=== PATIENT | female | born 1995 | race Caucasian/White ===

== ENCOUNTER 2017-01-23 10:20 | Emergency (ER) | payer OTHER ==
[2017-01-23 11:24] VITALS: BP 114/69
--- NOTE | 2017-01-23 12:19 | UC ---
Throat Pain/Nasal Bill HPI - HPI Summary HPI Summary: 21 y/o female presents to the urgent care c/o sore throat and nasal congestion with yellowish nasal discharge for the the past 4 days. Pt states last night she had a headache and dizziness, specially with change in position or standing associate with B/L ear pain. Pt states pain is 7/10 with swallowing. She has taken ibuprofen 600mg PO last night to alleviate symptoms. This morning ear pain has increased. she had subjective fever at home. Pt denies N/V/D, cough , chest pain, abdominal pain. She has decrease appetite due to sore throat. Pt is PCN allergic. - History of Current Complaint Chief Complaint: UCRespiratory Stated Complaint: CAMPOS,THROAT,DIZZINESS Time Seen by Provider: 01/23/17 12:16 Hx Obtained From: Patient Hx Last Menstrual Period: 1yr+ ?: No Onset/Duration: Gradual Onset, Lasting Days - 4 days, Still Present Severity: Severe Pain Intensity: 9 Pain Scale Used: 0-10 Numeric Cough: None Associated Signs & Symptoms: Positive: Dysphagia, Nasal Discharge, Fever, Other - B/L ear pain - Epiglottits Risk Factors Epiglottis Risk Factors: Negative - Allergies/Home Medications Allergies/Adverse Reactions: Allergies Allergy/AdvReac Type Severity Reaction Status Date / Time Amoxicillin AdvReac Nausea And Verified 01/23/17 11:24 Vomiting honey nut cheerios Allergy Hives Uncoded 01/23/17 11:25 PMH/Surg Hx/FS Hx/Imm Hx Previously Healthy: Yes - Pt denies PMHX - Surgical History Surgical History: None - Family History Known Family History: Negative: Diabetes Family History: Hypothyrodism - Social History Occupation: Employed Full-time Lives: With Family Alcohol Use: None Substance Use Type: None Smoking Status (MU): Never Smoked Tobacco - Immunization History Most Recent Influenza Vaccination: Not the 2016/2016 Season Vaccination Up to Date: Yes Review of Systems Constitutional: Fever - subjective at home, Other - dizziness Skin: Negative Eyes: Negative ENT: Sore Throat, Ear Ache - B/L, Nasal Discharge - yellowish nasal discharge Respiratory: Negative Cardiovascular: Negative Gastrointestinal: Negative Genitourinary: Negative Motor: Negative Neurovascular: Negative, Decreased Sensation Musculoskeletal: Negative Neurological: Headache Psychological: Negative Is Patient Immunocompromised?: No All Other Systems Reviewed And Are Negative: Yes Physical Exam Triage Information Reviewed: Yes Vital Signs: Initial Vital Signs Temp 99 F 01/23/17 11:17 Pulse 108 01/23/17 11:17 Resp 22 01/23/17 11:17 BP 114/69 01/23/17 11:17 Pulse Ox 100 01/23/17 11:17 - Additional Comments Vital signs: reviewed General: awake and alert,well developed, well nourished female w/o any apparent distress, not toxic appearing. Skin: [place], warm and dry, no evidence of atopic dermatitis, psoriasis, seborrhea. HEENT: -Head: atraumatic, non tender; no scalp dermatitis. -Eyes: sclera and conjunctiva clear, PERRLA, EOMI -Ears: no pre- or postauricular lymphadenopathy or erythema; RT external ear canal clear, Rt injected with mild yellowish discharge. LF external ear canal impacted with cerumen unable to visualized TM. No fluid level, vesicles, or bullae. No perforation. -Nose/Face: erythematous and edematous nasal mucosa with clear rhinorrhea, no frontal or maxillary sinus tender to palpation. -Mouth/Throat: Mucous membrane moist, posterior pharynx with erythema and no exudate. B/L tonsilar enlargement with no exudate. Neck: supple, FROM, positive anterior cervical lymphadenopathy, no meningismus. Chest: Clear to auscultation, normal breath sounds Abd: soft, Bowel sounds active, Nontender. Back: no spinal or CVAT Neuro: A&O x4, GCS 15, no focal neuro deficits, normal behavior for age. Throat Pain/Nasal Course/Dx - Course Course Of Treatment: 21 y/o female presents to the urgent care c/o sore throat and nasal congestion with yellowish nasal discharge for the the past 4 days. Pt states last night she had a headache and dizziness, specially with change in position or standing associate with B/L ear pain. Pt states pain is 7/10 with swallowing. She has taken ibuprofen 600mg PO last night to alleviate symptoms. This morning ear pain has increased. she had subjective fever at home. Pt denies N/V/D, cough , chest pain, abdominal pain. She has decrease appetite due to sore throat. Pt is PCN allergic. Hx obtained.Pt with RT otitis media, pharyngitis and LF external ear canal with cerumen impaction on examination.Rapid strep ordered r/o strep, result: negative. Pt Rx Z-ana m, ibuprofen PO and Carbamide peroxide otic drops. Pt advised to rest, eat well and avoid strenuous exercise. If symptoms do not improve or worsen advised to return to the urgent care or f/u with her PCP for further evaluation and treatment. Pt understood and agreed plan of care - Differential Dx/Diagnosis Differential Diagnosis/HQI/PQRI: Influenza, Laryngitis, Mononucleosis, Otitis Media, Peritonsillar Abscess, Pharyngitis, Tonsillitis, URI Provider Diagnoses: 1- Acute Otitis Media. 2- Pharyngitis. 3- Left external ear canal with Cerumen Impaction Discharge - Discharge Plan Condition: Stable Disposition: HOME Prescriptions: Azithromyxin ANA M (NF) [Z-Ana M (Zithromax) 250 mg tabs #6] 2 tab PO .TODAY, THEN 1 DAILY #6 tab Carbamide Peroxide 6.5% OTIC* [DEBROX 6.5% Otic*] 5 drop LEFT EAR BID #1 bottle Famotidine TAB* [Pepcid 20 MG TAB*] 20 mg PO DAILY #30 tab Ibuprofen TAB* [Motrin TAB* 800 MG] 800 mg PO Q6H #20 tab Patient Education Materials: Pharyngitis (ED), Cerumen Impaction (ED), Otitis Media (ED) Forms: *Work Release Referrals: [facility] [place] [facility] [Outside] - 3 Days Non Staff,Doctor [Primary Care Provider] - Additional Instructions: 1- Please take the full course of the antibiotic to avoid resistance. Apply otic drops on left ear to soften cerumen 2-Please take ibuprofen PO q6-8hrs prn as instructed after meals to alleviate pain and swelling. Increase fluid intake, eat well, rest and avoid strenuous exercise. Take Famotidine to protect you stomach. 3-If symptoms do not improve or worsen please return to the urgent care or f/u with your PCP for further evaluation and treatment.
[2017-01-23] MEDS ORDERED: Ibuprofen TAB* 400 MG PO ONE (12:28)
[2017-01-23] MEDS ORDERED: Famotidine TAB* 20 MG PO ONE (12:28)
== END 2017-01-23 12:49 | disposition home or self-care (01) ==
LOC: UCCORT 10:20
DX: H66.93 Otitis media, unspecified, bilateral (principal); H61.22 Impacted cerumen, left ear; J02.9 Acute pharyngitis, unspecified; Z88.1 Allergy status to other antibiotic agents
CPT/HCPCS: 87651; 99212; A9270-GY; G0463

== ENCOUNTER 2017-04-08 15:07 | Emergency (ER) | payer OTHER | END 2017-04-08 17:20 | disposition left against medical advice (07) | LOC: UCCORT 15:07 | DX: Z53.21 Procedure and treatment not carried out due to patient leaving prior to being seen by health care provider (principal) ==

== ENCOUNTER 2017-05-28 09:03 | Emergency (ER) | payer SELFPAY ==
[2017-05-28 10:14] VITALS: BP 107/68
--- NOTE | 2017-05-28 10:22 | UC ---
Throat Pain/Nasal Bill HPI - HPI Summary HPI Summary: patient has had sore throat, bodyaches and cough for the psat 3 days. - History of Current Complaint Chief Complaint: UCGeneralIllness Stated Complaint: SORE THROAT, HEADACHE, FEVER Time Seen by Provider: 05/28/17 10:16 Hx Obtained From: Patient Hx Last Menstrual Period: 1yr+ ?: No Onset/Duration: Sudden Onset, Lasting Days Severity: Moderate Pain Intensity: 7 Cough: Nonproductive Associated Signs & Symptoms: Positive: Dysphagia, Wheezing, Nasal Discharge - Allergies/Home Medications Allergies/Adverse Reactions: Allergies Allergy/AdvReac Type Severity Reaction Status Date / Time amoxicillin AdvReac Nausea And Verified 05/28/17 10:13 Vomiting PMH/Surg Hx/FS Hx/Imm Hx Previously Healthy: Yes - Surgical History Surgical History: None - Family History Known Family History: Positive: Unknown Negative: Diabetes Family History: Hypothyrodism - Social History Alcohol Use: Occasionally Substance Use Type: None Smoking Status (MU): Never Smoked Tobacco - Immunization History Most Recent Influenza Vaccination: Not the Season Vaccination Up to Date: Yes Review of Systems Constitutional: Chills, Fatigue Skin: Negative Eyes: Negative ENT: Sore Throat, Ear Ache Respiratory: Cough Cardiovascular: Negative Gastrointestinal: Negative Motor: Negative Neurovascular: Negative Musculoskeletal: Myalgia Neurological: Headache Is Patient Immunocompromised?: No All Other Systems Reviewed And Are Negative: Yes Physical Exam Triage Information Reviewed: Yes Appearance: Well-Nourished, Ill-Appearing, Pain Distress Vital Signs: Initial Vital Signs Temp 99.0 F 05/28/17 10:10 Pulse 125 05/28/17 10:10 Resp 16 05/28/17 10:10 BP 107/68 05/28/17 10:10 Pulse Ox 100 05/28/17 10:10 Vital Signs Reviewed: Yes Eye Exam: Normal ENT: Positive: Pharyngeal erythema, TM bulging, TM red, Tonsillar swelling, Tonsillar exudate Dental Exam: Normal Neck exam: Normal Neck: Positive: Supple, Nontender, No Lymphadenopathy Respiratory Exam: Normal Respiratory: Positive: Chest non-tender, No respiratory distress, No accessory muscle use, Wheezing, Inspiration Cardiovascular Exam: Normal Cardiovascular: Positive: RRR, No Murmur, Pulses Normal Abdominal Exam: Normal Abdomen Description: Positive: Nontender, No Organomegaly, Soft Bowel Sounds: Positive: Present Musculoskeletal Exam: Normal Musculoskeletal: Positive: Strength Intact, ROM Intact, No Edema Neurological Exam: Normal Neurological: Positive: Alert, Muscle Tone Normal Psychological Exam: Normal Skin Exam: Normal Throat Pain/Nasal Course/Dx - Course Course Of Treatment: hx obtained, exam performed ,meds reviewed, rapid strep obtained and is negative, treated for wheezing, suspected flu or viral illness - Differential Dx/Diagnosis Differential Diagnosis/HQI/PQRI: Otitis Media, Pharyngitis, Sinusitis, URI Provider Diagnoses: pharyngitis. tachycardia. myalgia. wheezing Discharge - Discharge Plan Condition: Stable Disposition: HOME Prescriptions: predniSONE TAB* [Deltasone TAB*] 40 mg PO DAILY #14 tab Patient Education Materials: Pharyngitis (ED) Referrals: Non Staff,Doctor [Primary Care Provider] - Additional Instructions: 1. increase fluid intake 2. get plenty of rest 3. Take the medication as prescribed 4. FOllow up as needed.
== END 2017-05-28 10:43 | disposition home or self-care (01) ==
LOC: UCCORT 09:03
DX: J02.9 Acute pharyngitis, unspecified (principal); R00.0 Tachycardia, unspecified; M79.1 Myalgia; R06.2 Wheezing; Z88.0 Allergy status to penicillin
CPT/HCPCS: 87651; 99212; G0463

== ENCOUNTER 2018-02-16 15:53 | Emergency (ER) | payer SELFPAY ==
[2018-02-16 16:11] VITALS: BP 108/70
--- NOTE | 2018-02-16 16:33 | UC ---
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 + gerd sx. took a lot of tums. Ulisses says she eats terribe diet w/ a lot of junk food and sugar. no fevers. + diarrhea x 3 wks. states she has never been constipated. had regular BMs daily prior to this. admits to BRBPR this year. last was 3 wks ago prior to this onset. cousin w/ Crohns disease. she never went to the Dr earlier in this year for her sx bc she did not have isnurance. she ate bland diet adn sx resolved. thought she had an ulcer. -denies NSAIDs. takes excedrin 1x q2 wks -denies dysruria. has coffee daily, 1 energy drink per week. -no fever. - History of Current Complaint Chief Complaint: UCGeneralIllness Stated Complaint: CRAMPING X3 WEEKS Time Seen by Provider: 02/16/18 16:12 Hx Last Menstrual Period: has mirena Pain Intensity: 4 Allergies/Adverse Reactions: Allergies Allergy/AdvReac Type Severity Reaction Status Date / Time amoxicillin AdvReac Nausea And Verified 05/28/17 10:13 Vomiting PMH/Surg Hx/FS Hx/Imm Hx Previously Healthy: Yes - Surgical History Surgical History: None - Family History Known Family History: Positive: Other - cousin w/ crohns and ulcers Negative: Diabetes Family History: Hypothyrodism - Social History Alcohol Use: Weekly Substance Use Type: None Smoking Status (MU): Never Smoked Tobacco - Immunization History Most Recent Influenza Vaccination: Not the 2016/2016 Season Vaccination Up to Date: Yes Review of Systems All Other Systems Reviewed And Are Negative: Yes Constitutional: Positive: Negative Skin: Positive: Negative Eyes: Positive: Negative ENT: Positive: Negative Respiratory: Positive: Negative Cardiovascular: Positive: Negative Gastrointestinal: Positive: Abdominal Pain, Diarrhea, Nausea Genitourinary: Positive: Negative Motor: Positive: Negative Neurovascular: Positive: Negative Musculoskeletal: Positive: Negative Neurological: Positive: Negative Psychological: Positive: Negative Is Patient Immunocompromised?: No Physical Exam Triage Information Reviewed: Yes Appearance: Well-Appearing, No Pain Distress, Well-Nourished Vital Signs: Initial Vital Signs Temp 98.4 F 02/16/18 16:07 Pulse 88 02/16/18 16:07 Resp 14 02/16/18 16:07 BP 108/70 02/16/18 16:07 Pulse Ox 100 02/16/18 16:07 Vital Signs Reviewed: Yes Eye Exam: Normal ENT Exam: Normal ENT: Positive: Pharynx normal, TMs normal - + cerumen Neck exam: Normal Neck: Positive: Supple, Nontender, No Lymphadenopathy Respiratory Exam: Normal Respiratory: Positive: Lungs clear, Normal breath sounds, No respiratory distress, No accessory muscle use. Negative: Crackles, Rhonchi, Stridor, Wheezing Cardiovascular Exam: Normal Cardiovascular: Positive: RRR, No Murmur, Pulses Normal Abdomen Description: Positive: No Organomegaly, Soft, Other: - tender generally throughout entire abdomen, most pronounced at left mid abdomen. no r/g. Negative: CVA Tenderness (R), CVA Tenderness (L), Distended, Guarding, Pulsatile Mass, Splenomegaly Bowel Sounds: Positive: Present Musculoskeletal Exam: Normal Neurological Exam: Normal Psychological Exam: Normal Skin Exam: Normal Abd Pain Female Course/Dx - Course Course Of Treatment: UA + @ LE. Urine HCG neg. CT A/P shows no abnormalities. there may be a gall stone that can be further evaluated with the GI. -pt was stable at the time of dc. pain was minimal. - Differential Dx/Diagnosis Differential Diagnosis: Bowel Obstruction, Constipation, Diverticulitis, Gall Bladder Disease, Irritable Bowel Syndrome, Ovarian Cyst, Peptic Ulcer Disease, Renal Colic, Urinary Tract Infection Provider Diagnosis: Abdominal pain, Diarrhea Discharge - Sign-Out/Discharge Documenting (check all that apply): Patient Departure All imaging exams completed and their final reports reviewed: No Studies - Discharge Plan Condition: Stable Disposition: HOME Patient Education Materials: Abdominal Pain (ED) Referrals: No Primary Care Phys,NOPCP [Primary Care Provider] - Randolph Jones MD [Medical Doctor] - 1 Week Additional Instructions: We have printed a copy of your CT report that doesn't show any significant findings. The gallbladder may have a stone in it. We did talk about the fact that you did not have contrast done with the CT that can somewhat limit the findings. You should follow up with the rn telephone triage to evaluate further. The CT rules out some major issues, but does not fully evaluate and more testing is certainly needed. - Billing Disposition and Condition Condition: STABLE Disposition: Home
== END 2018-02-16 18:20 | disposition home or self-care (01) ==
LOC: UCCORT 15:53
DX: R10.84 Generalized abdominal pain (principal); R19.7 Diarrhea, unspecified; Z88.0 Allergy status to penicillin
CPT/HCPCS: 74176; 81003; 84702; 87086; 99211; G0463

== ENCOUNTER 2018-03-19 16:01 | Emergency (ER) | payer BC ==
[2018-03-19 17:09] VITALS: BP 118/73
--- NOTE | 2018-03-19 17:30 | UC ---
Complaint Female HPI - HPI Summary HPI Summary: 22 y/o female presents to the urgent care c/o urinary and frequency on urination since 03/14/2018. Pt w/ Hx of recurrent UTI. Pt states pain w/ urination is 7/10. She took Azo the first 2 days. She has been drinking water w /o any improvement. Today she developed lower back pain. Pt denies fever. flank pain, vaginal discharge, Hx of STD's, SOB, CAMPOS, chest pain, abdominal pain, N/V/ D. - History Of Current Complaint Chief Complaint: UCGU Stated Complaint: URINARY Time Seen by Provider: 03/19/18 17:20 Hx Obtained From: Patient Hx Last Menstrual Period: has mirena ?: No - Pt declines test Onset/Duration: Gradual Onset, Lasting Days - 5 days, Still Present, Worse Since - today Timing: Intermittent Severity Initially: Mild Severity Currently: Moderate Pain Intensity: 7 Pain Scale Used: 0-10 Numeric Character: Burning Aggravating Factor(s): Urination Alleviating Factor(s): Position Associated Signs And Symptoms: Positive: Back Pain - RT lower side back pain. Negative: Fever, Vaginal Bleeding/Discharge, Nausea, Vomiting(# Of Episodes =), Genital Swelling Related Hx: Similar Episode/Dx as: - UTI - Risk Factors Ectopic Risk Factor: Negative Ovarian Torsion Risk Factor: Negative - Allergies/Home Medications Allergies/Adverse Reactions: Allergies Allergy/AdvReac Type Severity Reaction Status Date / Time amoxicillin AdvReac Nausea And Verified 03/19/18 17:09 Vomiting Home Medications: Home Medications Omeprazole CAP (NF) [Prilosec CAP* 20 MG] 40 mg PO DAILY 03/19/18 [History Confirmed 03/19/18] Sucralfate TAB* [Carafate*] 1 gm PO QID 03/19/18 [History Confirmed 03/19/18] PMH/Surg Hx/FS Hx/Imm Hx Previously Healthy: Yes GI/ History: Other - gastritis Other GI/ History: Recurrent UTI - Surgical History Surgical History: None - Family History Known Family History: Negative: Diabetes Family History: Hypothyrodism, cousin w/ crohns and ulcers - Social History Occupation: Employed Full-time Lives: With Family Alcohol Use: Weekly Substance Use Type: None Smoking Status (MU): Never Smoked Tobacco - Immunization History Most Recent Influenza Vaccination: Not the Season Vaccination Up to Date: Yes Review of Systems All Other Systems Reviewed And Are Negative: Yes Constitutional: Positive: Negative Skin: Positive: Negative Eyes: Positive: Negative ENT: Positive: Negative Respiratory: Positive: Negative Cardiovascular: Positive: Negative Gastrointestinal: Positive: Negative Genitourinary: Positive: Dysuria, Frequency, Urgency Motor: Positive: Negative Neurovascular: Positive: Negative Musculoskeletal: Positive: Other: - RT side lower back pain Neurological: Positive: Negative Psychological: Positive: Negative Is Patient Immunocompromised?: No Physical Exam - Summary Physical Exam Summary: VITAL SIGNS: Reviewed. GENERAL: Patient is a well developed and nourished female who is sitting comfortable in the examining table. Patient is not in any acute respiratory distress. HEAD AND FACE: No signs of trauma. No ecchymosis, hematomas or skull depressions. No sinus tenderness. EYES: PERRLA, EOMI x 2, No injected conjunctiva, clear watery eyes, no nystagmus. No photophobia. EARS: Hearing grossly intact. Ear canals and tympanic membranes are within normal limits. MOUTH: pharynx with no erythema, no exudates,no palatal petechiae. no B/L tonsillar enlargement Uvula in midline. NECK: Supple, trachea is midline, no lymphadenopathy, no JVD, no carotid bruit, no c-spine tenderness, neck with full ROM. CHEST: Symmetric, no tenderness at palpation LUNGS: Clear to auscultation bilaterally. No wheezing or crackles. CVS: Regular rate and rhythm, S1 and S2 present, no murmurs or gallops appreciated. ABDOMEN: Soft, non-tender. No signs of distention. No rebound no guarding, and no masses palpated. Bowel sounds are normal. BACK:no scoliosis or lesions, non tender to palpation, No B/L CVA tenderness. mild RT side lower back pain EXTREMITIES: FROM in all major joints, no edema, no cyanosis or clubbing. NEURO: Alert and oriented x 3. No acute neurological deficits. Speech is normal and follows commands. SKIN: Dry and warm Triage Information Reviewed: Yes Vital Signs: Initial Vital Signs Temp 98.2 F 03/19/18 17:04 Pulse 98 03/19/18 17:04 Resp 16 03/19/18 17:04 BP 118/73 03/19/18 17:04 Pulse Ox 100 03/19/18 17:04 Complaint Female Dx - Course Course Of Treatment: 22 y/o female presents to the urgent care c/o urinary and frequency on urination since 03/14/2018. Pt w/ Hx of recurrent UTI. Pt states pain w/ urination is 7/10. She took Azo the first 2 days. She has been drinking water w/o any improvement. Today she developed lower back pain. Pt denies fever. flank pain, vaginal discharge, Hx of STD's, SOB, CAMPOS, chest pain, abdominal pain, N/V/D. Hx obtained. PE: WNL. UA ordered. UA results: Blood 1+ , Leukoesterase 2+. Pt Rx Ciprofloxacin PO x 7 days. Pyridium 100mg PO TID x 2 days. Advised to increase fluid intake. Urine sent for culture if any abnormality Pt will be notified for further treatment. Pt strongly advised if fever develops or flank pain despite taking antibiotic to inmediately go to the ER for further managment. Otherwise f/u w/ her PCP if not improvment. Pt understood and agreed w/ D/C instructions. Pt Left the clinic ambulating. - Differential Dx/Diagnosis Differential Diagnosis/HQI/PQRI: Cervicitis, Pelvic Inflammatory Disease, Renal Colic, Ureteral Stone, Urinary Tract Infection, Other - pyelonephritis Provider Diagnosis: UTI (urinary tract infection), Dysuria Discharge - Sign-Out/Discharge Documenting (check all that apply): Patient Departure - D/c home All imaging exams completed and their final reports reviewed: No Studies - Discharge Plan Condition: Stable Disposition: HOME Prescriptions: Ciprofloxacin TAB* [Cipro 500 MG TAB*] 500 mg PO BID #14 tab Phenazopyridine TAB* [Pyridium 100 mg TAB*] 100 mg PO TID #6 tab Patient Education Materials: Urinary Tract Infection in Women (ED) Forms: *Work Release Referrals: [facility] [place] [facility] REFERR[facility] [Outside] - 3 Days Additional Instructions: 1- Please take Ciprofloxacin PO x 7 days. Pyridium 100 mg PO TID x 2 days to alleviate urinary symptoms. Increase increase fluid intake. drink cranberry juice. 2-Urine sent for culture if any abnormality, you will be notified for further treatment. 3- If symptoms worsen and you develop fever despite taking antibiotic please go immediately to the ER for further evaluation and treatment. - Billing Disposition and Condition Condition: STABLE Disposition: Home - Attestation Statements Provider Attestation: I was available for consult. This patient was seen by the HITESH. The patient was not presented to, seen by, or examined by me. -Gera
== END 2018-03-19 17:44 | disposition home or self-care (01) ==
LOC: UCCORT 16:01
DX: N39.0 Urinary tract infection, site not specified (principal); R30.0 Dysuria; Z87.440 Personal history of urinary (tract) infections; Z88.0 Allergy status to penicillin
CPT/HCPCS: 81003; 84702; 87086; 87088; 99212; G0463

== ENCOUNTER 2018-10-03 21:06 | Emergency (ER) | payer BC ==
[2018-10-03 21:24] VITALS: BP 111/72
[2018-10-03] MEDS ORDERED: cefTRIAXone VIAL(*) 1,000 MG VIAL IM ONE ×2 (21:36→21:40)
--- NOTE | 2018-10-03 21:36 | UC ---
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 Pt states UTI symptoms (urgency and burning with urination) cleared. Then woke this am with lower back pain and pelvis hurting. Pt felt she had a fever today. " -has had pyelnephritis before. feels similar -left flank pain is smod-severe. -felt feverish all day + dysuria started today again. -denies , has IUD. lives w/ BF who is reliabel and can take her to ER overnight if sx worsen - History Of Current Complaint Chief Complaint: UCGU Stated Complaint: URINARY COMPLAINT Time Seen by Provider: 10/03/18 21:25 Hx Last Menstrual Period: IUD Pain Intensity: 7 - Allergies/Home Medications Allergies/Adverse Reactions: Allergies Allergy/AdvReac Type Severity Reaction Status Date / Time amoxicillin AdvReac Nausea And Verified 10/03/18 21:24 Vomiting PMH/Surg Hx/FS Hx/Imm Hx Previously Healthy: Yes - Surgical History Surgical History: None - Family History Known Family History: Positive: Unknown, Other - cousin w/ crohns and ulcers Negative: Diabetes Family History: Hypothyrodism, cousin w/ crohns and ulcers - Social History Alcohol Use: Weekly Substance Use Type: None Smoking Status (MU): Never Smoked Tobacco - Immunization History Most Recent Influenza Vaccination: Not the 2015/2016 Season Vaccination Up to Date: Yes Review of Systems All Other Systems Reviewed And Are Negative: Yes Constitutional: Positive: Fever, Chills, Fatigue Skin: Negative: Rash Eyes: Positive: Negative ENT: Positive: Negative Respiratory: Positive: Negative. Negative: Cough Cardiovascular: Positive: Negative. Negative: Chest Pain Gastrointestinal: Positive: Abdominal Pain Genitourinary: Positive: Dysuria, Urgency Motor: Positive: Negative Neurovascular: Positive: Negative Musculoskeletal: Positive: Myalgia Neurological: Positive: Negative Psychological: Positive: Negative Is Patient Immunocompromised?: No Physical Exam Triage Information Reviewed: Yes Appearance: Well-Nourished, Ill-Appearing - mild. very pleaant. 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 Vital Signs: Initial Vital Signs Temp 98.8 F 10/03/18 21:19 Pulse 86 10/03/18 21:19 Resp 16 10/03/18 21:19 BP 111/72 10/03/18 21:19 Pulse Ox 99 07/24/19 21:19 Eye Exam: Normal ENT Exam: Normal ENT: Positive: Pharynx normal Neck exam: Normal Neck: Positive: Supple, Nontender, No Lymphadenopathy Respiratory: Positive: Lungs clear, Normal breath sounds, No respiratory distress, No accessory muscle use Cardiovascular Exam: Normal Cardiovascular: Positive: RRR Abdomen Description: Positive: Soft, CVA Tenderness (L) - positive, Other: - tender at suprapubic area. midl at LLQ. Negative: CVA Tenderness (R), Distended , Guarding, Hepatomegaly, Peritoneal Signs, Pulsatile Mass Musculoskeletal Exam: Normal Neurological Exam: Normal Psychological Exam: Normal Skin Exam: Normal Skin: Negative: Rashes Complaint Female Dx - Course Course Of Treatment: Suspect pylenephritis. has had before, sx are similar. + myalgias, feverish, dysuria and left flank pain. -has had azo over wknd. -sx started 6 days ago w/o abx treatment -treat w. rocephin 1gm IM x 1 now (amox caused n/v in past, no rash or anaphylactic sx) -bactrim DS 1 tab now, 2nd to take home for AM. additional 9 d sebnt to pharamcy -I caylagray stressed that she needs to go to ER imemdiately w/ any worsening sx - fevers/body aches/ worsening pain/flank pain/pelvic pain. she v/u and is very agreeable. her BF could drive her overnight if needed. denies . UA + 3 LE, + 2 blood. neg nitrites. - Differential Dx/Diagnosis Differential Diagnosis/HQI/PQRI: , Renal Colic, Urinary Tract Infection Provider Diagnosis: Left flank pain, Dysuria Discharge - Sign-Out/Discharge Documenting (check all that apply): Patient Departure All imaging exams completed and their final reports reviewed: No Studies - Discharge Plan Condition: Stable Disposition: HOME Prescriptions: Sulfamethox/Trimethoprim DS* [Bactrim DS 800/160 TAB*] 1 tab PO BID #20 tab Patient Education Materials: Kidney Infection (ED) Referrals: No Primary Care Phys,NOPCP [Primary Care Provider] - Additional Instructions: Please makes ure to follow up with your PCP tomorrow at [facility] in [place], [place] -we have given you 1gm of an antibiotic called ceftriaxone here and 1 tablet of bactrim DS and 1 to take with you for the morning. The remaining 9 days of antibiotics were sent top your pharamcy -You may have a kidney infection called pylenophritis. This can progress and worsen quickly. It is very important that you go directly to the ER if your symptoms worsen at any point for further testing and management. - Billing Disposition and Condition Condition: STABLE Disposition: Home
[2018-10-03] MEDS ORDERED: Sulfamethox/Trimethoprim DS 800/160* TAB PO ONE (21:37)
== END 2018-10-03 22:10 | disposition home or self-care (01) ==
LOC: UCCORT 21:06
DX: R30.0 Dysuria (principal); R10.9 Unspecified abdominal pain
CPT/HCPCS: 81003; 87077; 87086; 96372; 99213; A9270-GY; G0463; J0696

== ENCOUNTER 2018-11-12 08:08 | Emergency (ER) | payer BC ==
[2018-11-12 08:31] VITALS: BP 108/73
[2018-11-12] MEDS ORDERED: Acetaminophen TAB* 325 MG PO ONE (08:33)
--- NOTE | 2018-11-12 08:44 | UC ---
Throat Pain/Nasal Bill HPI - HPI Summary HPI Summary: Pt presents with c/o ST, that began 7 days ago, seemed to get better then on worsened with pain intensity and fever. Pt states that it is painful to swallow and she has body aches. - History of Current Complaint Chief Complaint: UCRespiratory Stated Complaint: SORE THROAT NAUSEA HEADACHE FEVER Time Seen by Provider: 11/12/18 08:14 Hx Obtained From: Patient Hx Last Menstrual Period: n/a ?: No Onset/Duration: Gradual Onset, Lasting Days, Still Present, Worse Since - last two days Severity: Severe Pain Intensity: 9 Cough: None Associated Signs & Symptoms: Positive: Dysphagia, Fever - Epiglottits Risk Factors Epiglottis Risk Factors: Negative - Allergies/Home Medications Allergies/Adverse Reactions: Allergies Allergy/AdvReac Type Severity Reaction Status Date / Time amoxicillin AdvReac Nausea And Verified 11/12/18 08:16 Vomiting Home Medications: Home Medications D-Methorphan/PE/Acetaminophen [Vicks Dayquil Liquicaps] 2 cap PO BID PRN [History Confirmed 11/12/18] Ibuprofen TAB* [Motrin TAB* 400 MG] 400 mg PO ONCE PRN 11/12/18 [History Confirmed 11/12/18] PMH/Surg Hx/FS Hx/Imm Hx Previously Healthy: Yes - Surgical History Surgical History: None - Family History Known Family History: Positive: Unknown, Other - cousin w/ crohns and ulcers Negative: Diabetes Family History: Hypothyrodism, cousin w/ crohns and ulcers - Social History Occupation: Employed Full-time Lives: With Family Alcohol Use: Occasionally Substance Use Type: None Smoking Status (MU): Never Smoked Tobacco Have You Smoked in the Last Year: No - Immunization History Most Recent Influenza Vaccination: Not the 2016/2017 Season Vaccination Up to Date: Yes Review of Systems All Other Systems Reviewed And Are Negative: Yes Constitutional: Positive: Fever, Chills, Fatigue Skin: Positive: Negative Eyes: Positive: Negative ENT: Positive: Sore Throat Respiratory: Positive: Negative Cardiovascular: Positive: Negative Gastrointestinal: Positive: Negative Genitourinary: Positive: Negative Motor: Positive: Negative Neurovascular: Positive: Negative Musculoskeletal: Positive: Myalgia Neurological: Positive: Negative Psychological: Positive: Negative Is Patient Immunocompromised?: No Physical Exam Triage Information Reviewed: Yes Appearance: Ill-Appearing Vital Signs: Initial Vital Signs Temp 104.3 F 11/12/18 08:23 Pulse 134 11/12/18 08:23 Resp 18 11/12/18 08:23 BP 108/73 11/12/18 08:23 Pulse Ox 99 11/12/18 08:23 Vital Signs Reviewed: Yes Eye Exam: Normal ENT: Positive: Pharyngeal erythema, Tonsillar swelling Dental Exam: Normal Neck exam: Normal Neck: Positive: Enlarged Nodes @ - submandibular, tender Respiratory Exam: Normal Cardiovascular Exam: Normal Musculoskeletal Exam: Normal Neurological Exam: Normal Psychological Exam: Normal Skin Exam: Normal Throat Pain/Nasal Course/Dx - Course Course Of Treatment: I discussed with the pt the possibility of Logan and pt declined testing at this time. Pt denies beign bit by a tick or other insect that she knows of. Denies rash. - Differential Dx/Diagnosis Differential Diagnosis/HQI/PQRI: Mononucleosis, Tonsillitis Provider Diagnosis: Tonsillitis Discharge ED - Sign-Out/Discharge Documenting (check all that apply): Patient Departure All imaging exams completed and their final reports reviewed: No Studies - Discharge Plan Condition: Stable Disposition: HOME Prescriptions: Azithromycin 500 mg PO DAILY #5 tablet predniSONE TAB* [Deltasone 10 MG TAB*] 30 mg PO DAILY #12 tab Patient Education Materials: Tonsillitis (ED) Forms: *Work Release Referrals: [facility] [Outside] - If Needed No Primary Care Phys,NOPCP [Primary Care Provider] - - Billing Disposition and Condition Condition: STABLE Disposition: Home
== END 2018-11-12 09:03 | disposition home or self-care (01) ==
LOC: UCCORT 08:08
DX: J03.90 Acute tonsillitis, unspecified (principal); Z88.0 Allergy status to penicillin
CPT/HCPCS: 87651; 99212; A9270-GY; G0463

== ENCOUNTER 2019-01-05 12:12 | Emergency (ER) | payer BC ==
[2019-01-05 13:36] VITALS: BP 104/66
--- NOTE | 2019-01-05 13:52 | UC ---
Throat Pain/Nasal Bill HPI - HPI Summary HPI Summary: Pt presents with c/o sore throat, fever, chills, X 7 days. Pt states that she has had multiple episodes of tonsillitis over the last year. Pt would prefer not to be tested for strep as she can not tolerate throat culture. - History of Current Complaint Chief Complaint: UCGeneralIllness Stated Complaint: ST,FEVER,CAMPOS Time Seen by Provider: 01/05/19 13:41 Hx Obtained From: Patient Hx Last Menstrual Period: IUD ?: No Onset/Duration: Sudden Onset, Lasting Days - 7, Still Present Severity: Moderate Pain Intensity: 7 Cough: None Associated Signs & Symptoms: Positive: Dysphagia, Fever - Epiglottits Risk Factors Epiglottis Risk Factors: Negative - Allergies/Home Medications Allergies/Adverse Reactions: Allergies Allergy/AdvReac Type Severity Reaction Status Date / Time amoxicillin AdvReac Nausea And Verified 01/05/19 13:36 Vomiting Home Medications: Home Medications raNITIdine HCl [Ranitidine HCl] 75 mg PO DAILY 01/05/19 [History Confirmed 01/05] PMH/Surg Hx/FS Hx/Imm Hx Previously Healthy: Yes - Surgical History Surgical History: None - Family History Known Family History: Positive: Unknown, Other - cousin w/ crohns and ulcers Negative: Diabetes Family History: Hypothyrodism, cousin w/ crohns and ulcers - Social History Occupation: Employed Full-time Lives: With Family Alcohol Use: Occasionally Substance Use Type: None Smoking Status (MU): Never Smoked Tobacco Have You Smoked in the Last Year: No - Immunization History Most Recent Influenza Vaccination: Not the 2015/2016 Season Vaccination Up to Date: Yes Review of Systems All Other Systems Reviewed And Are Negative: Yes Constitutional: Positive: Fever, Chills Skin: Positive: Negative Eyes: Positive: Negative ENT: Positive: Sore Throat Respiratory: Positive: Negative Cardiovascular: Positive: Negative Gastrointestinal: Positive: Negative Genitourinary: Positive: Negative Motor: Positive: Negative Neurovascular: Positive: Negative Musculoskeletal: Positive: Negative Neurological: Positive: Negative Psychological: Positive: Negative Is Patient Immunocompromised?: No Physical Exam Triage Information Reviewed: Yes Appearance: Ill-Appearing Vital Signs: Initial Vital Signs Temp 98.4 F 01/05/19 13:31 Pulse 104 01/05/19 13:31 Resp 16 10/26/19 13:31 BP 104/66 01/05/19 13:31 Pulse Ox 99 01/05/19 13:31 Vital Signs Reviewed: Yes Eye Exam: Normal ENT: Positive: Pharyngeal erythema, Tonsillar swelling Dental Exam: Normal Neck exam: Normal Respiratory Exam: Normal Respiratory: Positive: Normal breath sounds Cardiovascular Exam: Normal Musculoskeletal Exam: Normal Neurological Exam: Normal Psychological Exam: Normal Skin Exam: Normal Throat Pain/Nasal Course/Dx - Differential Dx/Diagnosis Differential Diagnosis/HQI/PQRI: Laryngitis, Mononucleosis, Pharyngitis, Tonsillitis Provider Diagnosis: Tonsillitis Discharge ED - Sign-Out/Discharge Documenting (check all that apply): Patient Departure All imaging exams completed and their final reports reviewed: No Studies - Discharge Plan Condition: Stable Disposition: HOME Prescriptions: Azithromycin 500 mg PO DAILY #5 tablet Patient Education Materials: Tonsillitis (ED) Referrals: Jing Zavala NP [Primary Care Provider] - If Needed - Billing Disposition and Condition Condition: STABLE Disposition: Home
== END 2019-01-05 13:58 | disposition home or self-care (01) ==
LOC: UCCORT 12:12
DX: J03.90 Acute tonsillitis, unspecified (principal); Z88.0 Allergy status to penicillin
CPT/HCPCS: 99212; G0463

== ENCOUNTER 2019-04-25 11:23 | Emergency (ER) | payer BC ==
--- OUTSIDE RECORDS SUMMARY | 2019-04-25 12:31 | XMS REPORT | Continuity of Care Document ---
:1995 Author Organization [facility] Address [address] [place] [address] Phone Care Team Providers Name Role Phone Violeta Delong Unavailable Unavailable Allergies, Adverse Reactions, Alerts Substance Reaction Status amoxicillin Active Medications Medication Instructions Dosage Effective Dates Status Comments (start - stop) Liletta 19.5 mcg/24 Insert IU - Active hour (4 years) intrauterine device RANITIDINE HCL Not Available - Active (unknown strength) SUCRALFATE (unknown Not Available - Active strength) OMEPRAZOLE (unknown take 1 capsule by Not Available - Active strength) oral route every day before a meal Problems Condition Effective Dates (start - Clinical Status Comments stop) Human immunodeficiency virus [HIV] - counseling Encounter for test, result negative Encounter for insertion of intrauterine contraceptive device Human immunodeficiency virus [HIV] - counseling Encounter for oth general cnsl and advice on contraception Encounter for oth screening for malignant neoplasm of breast Encntr for residential monitor exam (general) (routine) w/o abn findings Encntr screen for infections w sexl mode of transmiss Procedures Procedure Date No information Results Test Name Date and Time Measure Units Reference Range Abnormal Flag Status Comments No information Advance Directives Directive Yes / No Effective Date File Name No information Encounters Encounter Practice Location Reason(s) Diagnoses Date Provider Providers Description For Visit Copied on Encounter [facility] [place]. [facility] [address], [place] [address], [address], [place], [place], [place], [place], [id number], [address], [place]. tel:+ tel:[phone] [facility] [place] immunodeficiency [address]. Provider: Of Greater virus [HIV] [address] [facility], counselingEncounter Joni Chang, [address] test, [address], [address], [place] result [place], [place] [address], [place], [place], negativeEncounter [place], [place], [id number], [place] [id number], [place], [address]. [place] intrauterine [place]. tel:+ tel:+[phone] contraceptive tel: [phone] device [id number] [facility] [place] immunodeficiency 1 [address]. Provider: Of Greater virus [HIV] [address] [place], counselingEncounter Joni Robles J, [address], [address], [place] cnsl and advice on [place], [place] [address], [place], [place], contraceptionEncoun [place], [place], [id number], [place] [address], [place], [address]. [place] screening for [place]. tel: tel:+[phone] malignant neoplasm tel: [phone] of breastEncntr for [id number] residential monitor exam (general) (routine) w/o abn findingsEncntr screen for infections w sexl mode of transmiss Family History Family Member Diagnosis Age At Onset 1st degree relative No hx of venous thromboembolism 1st degree relative No hx of coronary heart disease (female <65, male <55) 1st degree relative No hx of cancer of breast, colon, endometrium or ovary Immunizations Vaccine Date Status Comments No information Payers Payer name Insurance type Covered libertarian ID Authorization(s) [facility] [id number] Social History Type Description Quantity Date Captured Comments Alcohol Use Details Unknown Caffeine Use Details Unknown Tobacco Use Status Unknown Smoking Status Never smoker Sex Female Vital Signs Date / Height Weight BMI Pulse Blood Temperature Respiratory Body Head BMI Pulse Inhaled Time: Rate Pressure Rate Surface Circumference percentile Ox Ox Area No information Chief Complaint And Reason For Visit No information Reason For Referral Reason For Referral No information Plan Of Treatment Date Type Action Status No information History Of Present Illness Encounter Date Complaint History Of Present Illness No information Functional Status Date Functional Assessment No information Medications Administered Medication Instructions Dosage Effective Dates (start - stop) Status Comments No information Instructions Date Instruction Additional Information No information Assessments Type Assessment Date No information Goals Health Concern Goal Type Priority Status Date No information Medical Equipment Description Device Mayetta Device Identifier Effective Dates (start - stop ) Status No information Mental Status Date Cognitive Assessment No information Health Concerns Observation Date No information Concern Status Date No information
[2019-04-25 12:36] VITALS: BP 109/81
--- NOTE | 2019-04-25 12:52 | UC ---
General HPI - HPI Summary HPI Summary: On 04/23 in the afternoon noted to have bodyaches, headache and sore throat. Yesterday spiked a temp and began coughing and losing her voice. Has been taking dayquil and nyquil and fluids. No N/v/D. No inhaler use in the past. Did not get a flu shot Meds reviewed - History of Current Complaint Chief Complaint: UCRespiratory Stated Complaint: ST,BODY ACHES,CAMPOS Time Seen by Provider: 04/25/19 12:43 Hx Last Menstrual Period: IUD Pain Intensity: 6 - Allergy/Home Medications Allergies/Adverse Reactions: Allergies Allergy/AdvReac Type Severity Reaction Status Date / Time amoxicillin AdvReac Nausea And Verified 04/25/19 12:32 Vomiting PMH/Surg Hx/FS Hx/Imm Hx Previously Healthy: Yes - Surgical History Surgical History: None - Family History Known Family History: Positive: Unknown, Other - cousin w/ crohns and ulcers Negative: Diabetes Family History: Hypothyrodism, cousin w/ crohns and ulcers - Social History Alcohol Use: Occasionally Substance Use Type: None Smoking Status (MU): Never Smoked Tobacco Have You Smoked in the Last Year: No - Immunization History Most Recent Influenza Vaccination: Not the 2015/2016 Season Vaccination Up to Date: Yes Review of Systems All Other Systems Reviewed And Are Negative: Yes Constitutional: Positive: Fever ENT: Positive: Sore Throat, Nasal Discharge Respiratory: Positive: Cough Physical Exam Triage Information Reviewed: Yes Appearance: Other: - mildly ill appearing Vital Signs: Initial Vital Signs Temp 98 F 04/25/19 12:33 Pulse 98 04/25/19 12:33 Resp 16 04/25/19 12:33 BP 109/81 04/25/19 12:33 Pulse Ox 100 04/25/19 12:33 Vital Signs Reviewed: Yes Eyes: Positive: Conjunctiva Clear ENT: Positive: Pharyngeal erythema, Nasal congestion, Other - TM's dull b/l, clear fluid Neck: Positive: Supple, Nontender Respiratory: Positive: Lungs clear, Decreased breath sounds Cardiovascular: Positive: RRR, No Murmur Course/Dx - Course Course Of Treatment: This is a 24 yr old with flu like symptoms Flu: Negative Plan Your flu test was negative Recommend continue supportive care Continue rest, fluids and over the counter cough suppressant and decongestant Continue ibuprofen as needed for pain/fever - take as directed as needed If symptoms persist or worsen, recommend follow up with PCP or return to urgent care - Diagnoses Provider Diagnosis: Viral syndrome Discharge ED - Sign-Out/Discharge Documenting (check all that apply): Patient Departure All imaging exams completed and their final reports reviewed: No Studies - Discharge Plan Condition: Good Disposition: HOME Patient Education Materials: Viral Syndrome (ED) Forms: *Work Release Referrals: Jing Zavala NP [Primary Care Provider] - Additional Instructions: Your flu test was negative Recommend continue supportive care Continue rest, fluids and over the counter cough suppressant and decongestant Continue ibuprofen as needed for pain/fever - take as directed as needed If symptoms persist or worsen, recommend follow up with PCP or return to urgent care - Billing Disposition and Condition Condition: GOOD Disposition: Home
[2019-04-25 13:10] LABS: Influenza A Molecular Negative (Negative); Influenza B Molecular Negative (Negative)
== END 2019-04-25 13:33 | disposition home or self-care (01) ==
LOC: UCCORT 11:23
DX: B34.9 Viral infection, unspecified (principal); J02.9 Acute pharyngitis, unspecified; R51 Headache; R09.81 Nasal congestion; Z88.0 Allergy status to penicillin
CPT/HCPCS: 99211; G0463